=== PATIENT | male | born 1960 | race American Indian/Alaskan Native ===

== ENCOUNTER 2016-11-28 15:55 | Emergency (ER) | payer MEDICAID ==
[~2016-11-28] VITALS: Ht 182.9 cm; Wt 158.8 kg
[2016-11-28] MEDS ORDERED: NORCO 5-325 TA1 EACH PO (16:43)
== END 2016-11-28 17:01 | disposition home or self-care (01) ==
LOC: ED 15:55
PROC: 0HQKXZZ Repair Right Lower Leg Skin, External Approach (ICD-10-PCS; principal; 2016-11-28)
DX: S81.012A Laceration without foreign body, left knee, initial encounter (principal); W31.89XA Contact with other specified machinery, initial encounter
CPT/HCPCS: 12002; 99283